=== PATIENT | male | born 1975 | race Caucasian/White ===

== ENCOUNTER 2022-01-02 22:47 | Observation (INO) ==
[2022-01-02 23:10] LABS: Basophils % 0.2 % (0.0-0.8); Eosinophils # 0.1 10*3/uL (0.0-0.87); Eosinophils % 0.3 % (0.00-10.9); Hematocrit 46.1 VOL% (42.0-52.0); Immature Granulocytes % 0.4 %; Immature Granulocytes Absolute 0.08 #; Lymphocytes % 10.9 % (21.2-54.2); Mean Corpuscular HGB Conc 34.7 GM/DL (32-36); Mean Corpuscular Volume 83.5 FL (87-102); Mean Platelet Volume 9.3 FL (9.6-12.0); Monocytes # 1.3 10*3/uL (0.11-0.8); Monocytes % 7.1 % (1.7-12.7); Neutrophils % 81.1 % (38.7-73.9); Platelet Count 203 T/CUMM (130-400); Red Blood Count 5.52 MC/CUMM (3.8-5.5); Red Cell Distribution Width 12.4 % (9.3-17.3); White Blood Count 18.2 T/CUMM (4-12)
[2022-01-02] MEDS ORDERED: ONDANSETRON 4 MG/2 ML VIAL IV ONE (23:24)
[2022-01-02] MEDS ORDERED: MORPHINE 2 MG/1 ML SYRINGE IV STA (23:24)
[2022-01-02] MEDS ORDERED: SODIUM CHLORIDE 0.9% 1,000 ML IV STA (23:24)
[2022-01-02 23:51] LABS: Albumin 3.6 G/DL (3.4-5.0); Bilirubin,Total 2.7 MG/DL (0.20-1.00); Calcium 9.8 MG/DL (8.5-10.1); Osmolality,Calculated 272.8 MOS/KG (273-304); Potassium 4.3 MMOL/L (3.5-5.1); Total Protein 7.7 G/DL (6.4-8.2)
[2022-01-02 23:55] LABS: Squamous Epithelial Cell,Urine Occasional /HPF (0-10)
[2022-01-02 23:56] LABS: Bilirubin,Urine Negative (Negative); Blood, Urine Negative (Negative); Glucose,Urine (UA) Negative (Negative); Ketones,Urine Negative (Negative); Nitrite,Urine Negative (Negative); Protein,Urine Negative (Negative); Urine Appearance Clear (Clear); Urine Color Yellow (Yellow); Urine Urobilinogen 0.2 eU/dL (<2.0)
[2022-01-03] MEDS ORDERED: PIPERACILLIN/TAZOBACTAM 3,375 MG in SODIUM CHLORIDE 0.9% 100 ML IV STA (01:36)
[2022-01-03] MEDS ORDERED: ONDANSETRON 4 MG/2 ML VIAL IV PRN ×2 (01:54→12:49)
[2022-01-03] MEDS ORDERED: MORPHINE 2 MG/1 ML SYRINGE IV PRN (01:54)
[2022-01-03] MEDS: DEXTROSE 5% NACL 0.45% 1,000 ML IV SCH ×2 (06:39→19:19)
[2022-01-03] MEDS ORDERED: LIDOCAINE 2% 5 ML VIAL ONE (10:46)
[2022-01-03] MEDS ORDERED: MIDAZOLAM 2 MG/2 ML VIAL ONE (10:47)
[2022-01-03] MEDS ORDERED: ROCURONIUM 50 MG/5 ML VIAL IV ONE (10:47)
[2022-01-03] MEDS ORDERED: propofoL 200 MG/20 ML VIAL IV ONE (10:47)
[2022-01-03] MEDS ORDERED: DEXAMETHASONE 4 MG/1 ML VIAL ONE (10:47)
[2022-01-03] MEDS ORDERED: BUPIVACAINE MPF 0.25% 10 ML VIAL ONE (10:47)
[2022-01-03] MEDS ORDERED: fentaNYL 100 MCG/2 ML VIAL ONE ×2 (10:47→12:03)
[2022-01-03] MEDS ORDERED: ONDANSETRON 4 MG/2 ML VIAL ONE (10:47)
[2022-01-03] MEDS ORDERED: SUCCINYLCHOLINE 200 MG/10 ML VIAL ONE (10:47)
[2022-01-03] MEDS ORDERED: TISSUE ADHESIVE 1 EACH APPLICATOR TOP ONE (10:48)
[2022-01-03] MEDS ORDERED: LIDOCAINE 2%/EPI 20 ML VIAL ONE (10:48)
[2022-01-03] MEDS ORDERED: SEVOFLURANE 1 UNIT/15 MINUTE INH ONE (11:38)
[2022-01-03] MEDS ORDERED: SUGAMMADEX 200 MG/2 ML VIAL IV ONE (12:07)
[2022-01-03] MEDS: PIPERACILLIN/TAZOBACTAM 3,375 MG in SODIUM CHLORIDE 0.9% 100 ML IV SCH ×2 (12:40→16:45)
[2022-01-03] MEDS: HYDROmorphone 1 MG/1 ML SYRINGE IV PRN ×2 (12:58→13:11)
[2022-01-03] MEDS: PANTOPRAZOLE 40 MG VIAL IV SCH (15:05)
[2022-01-04] MEDS: DEXTROSE 5% NACL 0.45% 1,000 ML IV SCH (04:00)
[2022-01-04 06:49] LABS: Basophils % 0.2 % (0.0-0.8); Hematocrit 42.7 VOL% (42.0-52.0); Hemoglobin 14.5 GM/DL (14.0-18.0); Immature Granulocytes % 0.4 %; Immature Granulocytes Absolute 0.08 #; Lymphocytes # 2.4 10*3/uL (1.4-4.0); Lymphocytes % 12.7 % (21.2-54.2); Mean Corpuscular Volume 84.2 FL (87-102); Mean Platelet Volume 9.5 FL (9.6-12.0); Monocytes # 1.6 10*3/uL (0.11-0.8); Monocytes % 8.4 % (1.7-12.7); Neutrophils % 78.3 % (38.7-73.9); Platelet Count 187 T/CUMM (130-400); Red Blood Count 5.07 MC/CUMM (3.8-5.5); Red Cell Distribution Width 12.4 % (9.3-17.3); White Blood Count 18.5 T/CUMM (4-12)
[2022-01-04] MEDS: PANTOPRAZOLE 40 MG VIAL IV SCH (09:21)
[2022-01-04] MEDS: PIPERACILLIN/TAZOBACTAM 3,375 MG in SODIUM CHLORIDE 0.9% 100 ML IV SCH ×3 (09:21→17:18)
[2022-01-05] MEDS: PIPERACILLIN/TAZOBACTAM 3,375 MG in SODIUM CHLORIDE 0.9% 100 ML IV SCH ×2 (01:21→09:49)
[2022-01-05 06:36] LABS: Basophils # 0.1 10*3/uL (0.0-0.2); Basophils % 0.5 % (0.0-0.8); Eosinophils # 0.1 10*3/uL (0.0-0.87); Eosinophils % 0.9 % (0.00-10.9); Hematocrit 43.8 VOL% (42.0-52.0); Hemoglobin 14.7 GM/DL (14.0-18.0); Immature Granulocytes % 0.4 %; Immature Granulocytes Absolute 0.04 #; Lymphocytes # 3.1 10*3/uL (1.4-4.0); Lymphocytes % 30.1 % (21.2-54.2); Mean Corpuscular HGB Conc 33.6 GM/DL (32-36); Mean Platelet Volume 9.9 FL (9.6-12.0); Monocytes % 9.9 % (1.7-12.7); Neutrophils % 58.2 % (38.7-73.9); Platelet Count 175 T/CUMM (130-400); Red Blood Count 5.15 MC/CUMM (3.8-5.5); Red Cell Distribution Width 12.6 % (9.3-17.3); White Blood Count 10.4 T/CUMM (4-12)
[2022-01-05 08:12] VITALS: BP 127/55
[2022-01-05] MEDS: PANTOPRAZOLE 40 MG VIAL IV SCH (09:50)
== END 2022-01-05 11:38 | disposition home or self-care (01) ==
LOC: N.ED 22:47 → N.EDINP 22:47 → N.3E 01-03 03:20
PROVIDERS: ADMIT Surgery; ATTEND Surgery